=== PATIENT | male | born 1955 | race Caucasian/White ===

== ENCOUNTER → 2017-10-05 | Outpatient (CLI) | payer OTHER | END | disposition home or self-care (01) | LOC: CFH 15:42 | PROVIDERS: ATTEND Neurological Surgery | DX: M50.10 Cervical disc disorder with radiculopathy, unspecified cervical region (principal); M48.02 Spinal stenosis, cervical region; M41.82 Other forms of scoliosis, cervical region | CPT/HCPCS: 72050; 72141 ==

== ENCOUNTER → 2017-11-09 | Outpatient (CLI) | payer OTHER ==
[~2017-11-09] MED LIST: ARIP10TA33 PO; ASPI-496 PO; CHOL2000 PO; DULO60CA55 PO; HYDR-3237 PO; LEVO50TA5 PO; LISI1TAB7 PO; SIMV80TA3 PO; ZINC50TA28 PO
[2017-11-09 16:04] LABS: BASOPHILS # (AUTO) 0.04 x10^3/uL (0-0.1); BASOPHILS % (AUTO) 1 % (0-1); EOSINOPHILS # (AUTO) 0.06 x10^3/uL (0-0.4); EOSINOPHILS % (AUTO) 1 % (1-7); LYMPHOCYTES % (AUTO) 32 % (22-44); MD NO; MEAN CORPUSCULAR HEMOGLOBIN 33.1 pg (27.5-34.5); MEAN CORPUSCULAR HGB CONC 34.6 g/dL (33.2-36.2); MEAN CORPUSCULAR VOLUME 95.8 fL (81-97); MEAN PLATELET VOLUME 7.1 fL (7.4-10.4); MONOCYTES # (AUTO) 0.79 x10^3/uL (0.2-0.8); MONOCYTES % (AUTO) 13 % (2-9); NEUTROPHILS # (AUTO) 3.33 x10^3/uL (1.8-6.8); NEUTROPHILS % (AUTO) 54 % (42-75); PLATELET COUNT 220 x10^3/uL (130-400); RED BLOOD COUNT 4.92 x10^6/uL (4.38-5.82); RED CELL DISTRIBUTION WIDTH 13.4 % (9.4-14.8)
[2017-11-09 16:11] LABS: ALANINE AMINOTRANSFERASE 50 U/L (12-78); ALBUMIN 3.8 g/dL (3.4-5.0); ANION GAP 9 mmol/L (5-15); CALCIUM 8.8 mg/dL (8.5-10.1); CHLORIDE 105 mmol/L (98-107); CREATININE 0.96 mg/dL (0.7-1.3)
[2017-11-09 16:13] LABS: ALKALINE PHOSPHATASE 72 U/L (45-117); BILIRUBIN,TOTAL 0.8 mg/dL (0.2-1.0); TOTAL PROTEIN 6.8 g/dL (6.4-8.2)
[2017-11-09 16:14] LABS: INTERNATIONAL NORMALIZED RATIO 0.96 (0.93-1.1)
== END | disposition home or self-care (01) ==
LOC: STAR 15:00
PROVIDERS: ATTEND Neurological Surgery
DX: Z01.818 Encounter for other preprocedural examination (principal); S22.41XD Multiple fractures of ribs, right side, subsequent encounter for fracture with routine healing; X58.XXXD Exposure to other specified factors, subsequent encounter
CPT/HCPCS: 36415; 71046; 80053; 85025; 85610; 85730; 93005

== ENCOUNTER 2017-11-23 05:53 | Inpatient (IN) | payer OTHER ==
[2017-11-09 15:59] VITALS: BP 138/81
[~2017-11-23] VITALS: Ht 180.3 cm; Wt 95.2 kg
[~2017-11-23 05:53] MED LIST changes: -SIMV80TA3 PO; +SIMV80TA7 PO
[2017-11-23] MEDS ORDERED: LACTATED RINGERS 1,000 ML IV SCH (06:44)
[2017-11-23] MEDS ORDERED: BUPIVACAINE/PF 0.5% ONE (06:48)
[2017-11-23] MEDS ORDERED: THROMBIN 5,000 UNIT VIAL TP ONE (06:48)
[2017-11-23] MEDS ORDERED: BACITRACIN 50,000 UNIT ONE (06:49)
[2017-11-23] MEDS ORDERED: EPINEPHRINE 1 MG/ML, 1ML ONE (06:49)
[2017-11-23] MEDS ORDERED: FENTANYL PF 250 MCG/5ML ONE (06:52)
[2017-11-23] MEDS ORDERED: MIDAZOLAM 1 MG/ML, 2ML ONE (06:52)
[2017-11-23] MEDS ORDERED: LIDOCAINE-MPF 1%, 2ML INFIL ONE (07:00)
[2017-11-23] MEDS ORDERED: ACETAMINOPHEN 500 MG TABLET ONE (07:13)
[2017-11-23] MEDS ORDERED: GABAPENTIN 300 MG CAPSULE ONE (07:13)
[2017-11-23] MEDS ORDERED: SUCCINYLCHOLINE 20 MG/ML, 10ML ONE (07:26)
[2017-11-23] MEDS ORDERED: PHENYLEPHRINE 10 MG/ML ONE (07:26)
[2017-11-23] MEDS ORDERED: ROCURONIUM 10 MG/ML,10ML ONE (07:26)
[2017-11-23] MEDS ORDERED: EPHEDRINE 50 MG/ML, 1ML ONE (07:26)
[2017-11-23] MEDS ORDERED: ACETAMINOPHEN 500 MG TABLET PO ONE (07:30)
[2017-11-23] MEDS ORDERED: GABAPENTIN 300 MG CAPSULE PO ONE (07:30)
[2017-11-23] MEDS ORDERED: hydrALAzine 20 MG/ML, 1ML IV PRN (09:30)
[2017-11-23] MEDS ORDERED: ONDANSETRON 2MG/ML, 2ML IV PRN ×2 (09:30→11:30)
[2017-11-23] MEDS ORDERED: LABETALOL 5MG/ML, 20ML IV PRN ×2 (09:30→11:30)
[2017-11-23] MEDS ORDERED: PROPOFOL 10 MG/ML, 20ML ONE (09:30)
[2017-11-23] MEDS ORDERED: DEXAMETHASONE 4 MG/ML, 1ML ONE (09:30)
[2017-11-23] MEDS ORDERED: DIPHENHYDRAMINE 50 MG/ML, 1ML IVPush PRN ×2 (09:30→11:30)
[2017-11-23] MEDS ORDERED: OXYcodone 5 MG/5 ML ORAL.SOL UDC PO PRN (09:30)
[2017-11-23] MEDS ORDERED: ONDANSETRON 2MG/ML, 2ML ONE (09:30)
[2017-11-23] MEDS ORDERED: CEFAZOLIN 1,000 MG ONE (09:30)
[2017-11-23] MEDS ORDERED: FENTANYL PF 100 MCG/2ML IV PRN (09:30)
[2017-11-23] MEDS ORDERED: HYDROmorphone 1 MG/ML, 1ML IV PRN (09:30)
[2017-11-23] MEDS ORDERED: HYDROmorphone 2 MG/ML, 1ML ONE (10:00)
[2017-11-23] MEDS ORDERED: OXYcodone 5 MG/5 ML ORAL.SOL UDC ONE (10:00)
[2017-11-23] MEDS ORDERED: MAGNESIUM HYDROXIDE 8%, 30ML UDC PO PRN (11:30)
[2017-11-23] MEDS ORDERED: HYDROmorphone 2 MG/ML, 1ML IM PRN (11:30)
[2017-11-23] MEDS ORDERED: PROMETHAZINE 25 MG/ML, 1ML IM PRN (11:30)
[2017-11-23] MEDS ORDERED: BISACODYL 10 MG SUPP PR PRN (11:30)
[2017-11-23] MEDS ORDERED: METHOCARBAMOL 750 MG TABLET PO PRN (11:30)
[2017-11-23] MEDS ORDERED: HYDROcodone/APAP 5/325 TABLET PO PRN (11:30)
[2017-11-23] MEDS ORDERED: HYDROcodone/APAP 10/325 MG TABLET PO PRN (11:30)
[2017-11-23] MEDS ORDERED: HYDROmorphone 2MG TABLET PO PRN (11:30)
[2017-11-23] MEDS: NS + 20MEQ KCL 1,000 ML IV SCH (12:06)
[2017-11-23 14:08] VITALS: BP 120/72
[2017-11-23] MEDS: CEFAZOLIN PMX 1GM/50ML 50 ML IVPB SCH ×2 (15:47→23:40)
[2017-11-23] MEDS ORDERED: SIMVASTATIN 40 MG TABLET PO SCH (21:00)
[2017-11-23 21:36] VITALS: BP 114/64
[2017-11-24] MEDS: NS + 20MEQ KCL 1,000 ML IV SCH (00:50)
[2017-11-24 01:06] VITALS: BP 104/66
[2017-11-24 04:49] VITALS: BP 114/63
[2017-11-24 05:40] LABS: BASOPHILS # (AUTO) 0.02 x10^3/uL (0-0.1); BASOPHILS % (AUTO) 0 % (0-1); EOSINOPHILS % (AUTO) 0 % (1-7); LYMPHOCYTES # (AUTO) 0.82 x10^3/uL (1-3.4); LYMPHOCYTES % (AUTO) 10 % (22-44); MD NO; MEAN CORPUSCULAR HEMOGLOBIN 32.7 pg (27.5-34.5); MEAN CORPUSCULAR HGB CONC 33.9 g/dL (33.2-36.2); MEAN CORPUSCULAR VOLUME 96.3 fL (81-97); MEAN PLATELET VOLUME 7.3 fL (7.4-10.4); MONOCYTES # (AUTO) 0.73 x10^3/uL (0.2-0.8); MONOCYTES % (AUTO) 9 % (2-9); NEUTROPHILS # (AUTO) 6.63 x10^3/uL (1.8-6.8); NEUTROPHILS % (AUTO) 81 % (42-75); PLATELET COUNT 172 x10^3/uL (130-400); RED BLOOD COUNT 3.99 x10^6/uL (4.38-5.82); RED CELL DISTRIBUTION WIDTH 13.7 % (9.4-14.8)
[2017-11-24 05:50] LABS: ANION GAP 4 mmol/L (5-15); CALCIUM 8.7 mg/dL (8.5-10.1); CHLORIDE 109 mmol/L (98-107)
[2017-11-24] MEDS ORDERED: LEVOTHYROXINE 50 MCG TABLET PO SCH (06:00)
[2017-11-24] MEDS ORDERED: HYDR-3307 PO ×2 (08:14→11:26)
[2017-11-24] MEDS ORDERED: METH750T87 PO ×2 (08:14→11:29)
[2017-11-24] MEDS ORDERED: HYDROCHLOROTHIAZIDE 25 MG TABLET PO SCH (09:00)
[2017-11-24] MEDS ORDERED: DULOXETINE 30 MG CAPSULE.DR PO SCH (09:00)
[2017-11-24] MEDS ORDERED: ARIPIPRAZOLE 10 MG TABLET PO SCH (09:00)
[2017-11-24] MEDS ORDERED: LISINOPRIL 20 MG TABLET PO SCH (09:00)
[2017-11-24] MEDS ORDERED: SENNA/DOCUSATE TABLET PO SCH (09:00)
[2017-11-24 09:05] VITALS: BP 131/72
== END 2017-11-24 11:50 | disposition home or self-care (01) | DRG 517 ==
LOC: OUT 05:53 → 4NOR 10:52 → OUT 11:26 → DCLOUNGE 11-24 11:22
PROVIDERS: ADMIT Neurological Surgery; ATTEND Neurological Surgery
PROC: 4A11X4G Monitoring of Peripheral Nervous Electrical Activity, Intraoperative, External Approach (ICD-10-PCS; 2017-11-23)
PROC: 01N10ZZ Release Cervical Nerve, Open Approach (ICD-10-PCS; principal; 2017-11-23 07:30)
DX: M48.02 Spinal stenosis, cervical region (principal); M54.12 Radiculopathy, cervical region; I10 Essential (primary) hypertension
CPT/HCPCS: 36415; 72040; 80048; 85025; 95938; 95941; C1713; J0171; J0690; J1100; J1170; J2250; J2270; J2405; J2704; J3010; J3480; J3490; J0330; J2370; J7120

== ENCOUNTER → 2018-06-06 | Outpatient (CLI) | payer OTHER ==
[~2018-06-06] MED LIST changes: +HYDR-3307 PO; +HYDR-3622 PO; +METH750T87 PO; +SIMV80TA18 PO; -SIMV80TA7 PO; -ZINC50TA28 PO; +ZINC50TA44 PO
[2018-06-06 14:53] LABS: PROTHROMBIN TIME 10.6 Seconds (9.6-11.5)
[2018-06-06 14:57] LABS: ANION GAP 5 mmol/L (5-15); CALCIUM 9.1 mg/dL (8.5-10.1); CHLORIDE 103 mmol/L (98-107)
[2018-06-06 15:02] LABS: ALANINE AMINOTRANSFERASE 47 U/L (12-78); ALKALINE PHOSPHATASE 84 U/L (45-117); BILIRUBIN,TOTAL 0.9 mg/dL (0.2-1.0); CREATININE 1.06 mg/dL (0.7-1.3)
[2018-06-06 15:06] LABS: BASOPHILS # (AUTO) 0.02 x10^3/uL (0-0.1); BASOPHILS % (AUTO) 0 % (0-1); EOSINOPHILS # (AUTO) 0.06 x10^3/uL (0-0.4); EOSINOPHILS % (AUTO) 1 % (1-7); LYMPHOCYTES # (AUTO) 1.43 x10^3/uL (1-3.4); LYMPHOCYTES % (AUTO) 33 % (22-44); MD NO; MEAN CORPUSCULAR HEMOGLOBIN 31.7 pg (27.5-34.5); MEAN CORPUSCULAR HGB CONC 33.9 g/dL (33.2-36.2); MEAN CORPUSCULAR VOLUME 93.4 fL (81-97); MEAN PLATELET VOLUME 7.3 fL (7.4-10.4); MONOCYTES # (AUTO) 0.59 x10^3/uL (0.2-0.8); MONOCYTES % (AUTO) 14 % (2-9); NEUTROPHILS # (AUTO) 2.24 x10^3/uL (1.8-6.8); NEUTROPHILS % (AUTO) 52 % (42-75); PLATELET COUNT 197 x10^3/uL (130-400); RED BLOOD COUNT 5.44 x10^6/uL (4.38-5.82); RED CELL DISTRIBUTION WIDTH 13.8 % (9.4-14.8)
== END | disposition home or self-care (01) ==
LOC: STAR 13:38
PROVIDERS: ATTEND Neurological Surgery
DX: Z01.818 Encounter for other preprocedural examination (principal); M51.26 Other intervertebral disc displacement, lumbar region
CPT/HCPCS: 36415; 71046; 80053; 85025; 85610; 85730; 93005

== ENCOUNTER 2018-06-14 07:50 | Day surgery (SDC) | payer OTHER ==
[~2018-06-14] VITALS: Ht 180.3 cm; Wt 96.0 kg
[~2018-06-14 07:50] MED LIST changes: +BACITRACIN 50,000 UNIT ONE; +BUPIVACAINE/PF-EPI 0.5% 1:200K ONE; +THROMBIN 5,000 UNIT VIAL TP ONE
[2018-06-14] MEDS ORDERED: LACTATED RINGERS 1,000 ML IV SCH (08:11)
[2018-06-14 08:24] VITALS: BP 126/85
[2018-06-14] MEDS ORDERED: LIDOCAINE-MPF 1%, 2ML INFIL ONE (08:30)
[2018-06-14] MEDS ORDERED: MIDAZOLAM 1 MG/ML, 2ML ONE (11:03)
[2018-06-14] MEDS ORDERED: FENTANYL PF 250 MCG/5ML ONE (11:03)
[2018-06-14] MEDS ORDERED: ROCURONIUM 10 MG/ML,10ML ONE (11:13)
[2018-06-14] MEDS ORDERED: SUCCINYLCHOLINE 20 MG/ML, 10ML ONE (11:13)
[2018-06-14] MEDS ORDERED: PROPOFOL 10 MG/ML, 20ML ONE (12:07)
[2018-06-14] MEDS ORDERED: DEXAMETHASONE 4 MG/ML, 5ML ONE (12:07)
[2018-06-14] MEDS ORDERED: CEFAZOLIN 1,000 MG ONE (12:07)
[2018-06-14] MEDS ORDERED: ONDANSETRON 2MG/ML, 2ML ONE (12:07)
[2018-06-14] MEDS ORDERED: OXYcodone 5 MG/5 ML ORAL.SOL UDC PO PRN (12:30)
[2018-06-14] MEDS ORDERED: MORPHINE SULFATE 4 MG/ML, 1ML IVPush PRN (12:30)
[2018-06-14] MEDS ORDERED: LABETALOL 5MG/ML, 20ML IV PRN (12:30)
[2018-06-14] MEDS ORDERED: PROMETHAZINE 25 MG/ML, 1ML IV PRN (12:30)
[2018-06-14] MEDS ORDERED: ONDANSETRON ODT 8 MG PO PRN (12:30)
[2018-06-14] MEDS ORDERED: MEPERIDINE/PF 25MG/0.5ML IVPush PRN (12:30)
[2018-06-14] MEDS ORDERED: hydrALAzine 20 MG/ML, 1ML IV PRN (12:30)
[2018-06-14] MEDS ORDERED: MIDAZOLAM 1 MG/ML, 2ML IV PRN (12:30)
[2018-06-14] MEDS ORDERED: ONDANSETRON 2MG/ML, 2ML IV PRN (12:30)
[2018-06-14] MEDS ORDERED: EPHEDRINE 50 MG/ML, 1ML IVPush PRN (12:30)
[2018-06-14] MEDS ORDERED: DIAZEPAM 5 MG/ML, 2ML IVPush PRN (12:30)
[2018-06-14] MEDS ORDERED: PROMETHAZINE 12.5 MG SUPP PR PRN (12:30)
[2018-06-14] MEDS ORDERED: ALBUTEROL SULFATE 2.5 MG/3 ML NPPB PRN (12:30)
[2018-06-14] MEDS ORDERED: HALOPERIDOL 5 MG/ML IV PRN (12:30)
[2018-06-14] MEDS ORDERED: HYDROmorphone 2 MG/ML, 1ML IVPush PRN (12:30)
[2018-06-14] MEDS ORDERED: OXYcodone 5 MG/5 ML ORAL.SOL UDC ONE (12:45)
[2018-06-14] MEDS ORDERED: FENTANYL PF 100 MCG/2ML ONE (12:45)
[2018-06-14] MEDS: FENTANYL PF 100 MCG/2ML IV PRN ×2 (12:47→12:56)
[2018-06-14] MEDS ORDERED: METHOCARBAMOL 750 MG TABLET ONE (12:59)
[2018-06-14] MEDS ORDERED: METHOCARBAMOL 750 MG TABLET PO ONE (13:00)
== END 2018-06-14 15:25 | disposition home or self-care (01) ==
LOC: OUT 07:50
PROVIDERS: ATTEND Neurological Surgery
DX: M51.16 Intervertebral disc disorders with radiculopathy, lumbar region (principal); I10 Essential (primary) hypertension; E78.00 Pure hypercholesterolemia, unspecified; F41.9 Anxiety disorder, unspecified; F32.9 Major depressive disorder, single episode, unspecified; Z98.890 Other specified postprocedural states; Z79.82 Long term (current) use of aspirin; Z72.89 Other problems related to lifestyle
CPT/HCPCS: 63030; 72100; J0330; J0690; J1100; J2250; J2405; J2704; J3010